=== PATIENT | male | born 1980 | race Two or more races ===

== ENCOUNTER 2018-12-02 07:42 | Emergency (ER) | payer OTHER ==
[2018-12-02] MEDS ORDERED: PROPARACAINE 0.5% 15 ML OPHT DROP ONE (09:33)
[2018-12-02] MEDS ORDERED: FLUORESCEIN SODIUM 1 MG STRIP OP ONE (09:33)
--- NOTE | 2018-12-02 09:52 | EDPHY ---
H & P Stated Complaint: R eye vision changes Time Seen by Provider: 12/02/18 08:58 HPI/ROS: CHIEF COMPLAINT: Black spot in vision HISTORY OF PRESENT ILLNESS: This is a 38-year-old male in general good health ( he takes thyroid replacement) who presents with a dark spot in his right eye visual field. He notices this this morning and it has persisted. The spot moves with eye movement. He has not had pain. He denies eye trauma. He feels that his vision might be slightly blurry but does not really think that his vision has markedly changed. He wears corrective eyeglasses. He does have a history of a floaters but this seems larger than what he normally experiences. He states that it is as if he has a "fly in his eye". REVIEW OF SYSTEMS: A ten system review of systems was performed and is negative with the exception of the items mentioned in the HPI. Past medical history: Hypothyroid, hyperlipidemia Past surgical history: Noncontributory. No eye surgery. Social history: He is a professor at the [employer]. He is . He does not use tobacco products. General Appearance: Alert. Vital signs reviewed. Eyes: Visual Acuity: noted from Nurse's notes. Right eye 20/25, OS 20/20, both eyes 20/20. With correction. Visual hall full to confrontational testing. Pupils:equal round and reactive to light, EOMI Lids: no edema or swelling Skin: no proptosis, no periorbital erythema or swelling, no vesicles Conjunctivae: not injected, no discharge Cornea: exam with fluorescein shows no corneal abrasion Anterior chamber:normal, no hyphema or hypopyon; anterior vitreous does not appear granular. ENT, Mouth: Mucous membranes are moist, no oropharyngeal erythema or edema. Neck: No lymphadenopathy, supple. Respiratory: Lungs are clear to auscultation; no wheezes, rales, or rhonchi. Cardiovascular: Regular rate and rhythm; no murmur, rub, or gallop. Skin: Warm and dry, no rashes on exposed skin, normal color. Neurological: Alert and oriented. Moving all four extremities easily and equally. Facial sensation intact to light touch. Tongue midline. Facial expressions symmetric appearing Psychiatric: Normal affect. - Personal History Current Tetanus/Diphtheria Vaccine: No Current Tetanus Diphtheria and Acellular Pertussis (TDAP): No - Medical/Surgical History Hx Asthma: No Hx Chronic Respiratory Disease: No Hx Diabetes: No Hx Cardiac Disease: No Hx Renal Disease: No Hx Cirrhosis: No Hx Alcoholism: No Hx HIV/AIDS: No Hx Splenectomy or Spleen Trauma: No Other PMH: thyroid - Social History Smoking Status: Never smoked Constitutional: Initial Vital Signs Temperature (C) 36.8 C 12/02/18 07:46 Heart Rate 65 12/02/18 07:46 Respiratory Rate 16 12/02/18 07:46 Blood Pressure 123/84 H 12/02/18 07:46 O2 Sat (%) 96 12/02/18 07:46 O2 Delivery Mode Nasal Cannula Allergies/Adverse Reactions: No Known Allergies Allergy (Verified 11/24/14 08:18) Home Medications: Medication Instructions Recorded CHOLECALCIFEROL [VITAMIN D] 3,000 iunits DAILY 12/11/12 LEVOTHYROXINE SODIUM [Tirosint 75 75 mcg PO DAILY 12/11/12 mcg] Atorvastatin Calcium 12/02/18 Medical Decision Making ED Course/Re-evaluation: Large floater right eye in year old male. Physical exam, including a slight limp exam, normal. Concern for retinal detachment remains. Other possibility include floaters, central retinal artery or vein occlusion, vitreous hemorrhage. I have spoken with Dr. Brunson, this patient's editor publications, and he will see the patient in his office. The patient is discharged from the emergency department and will go directly to Dr. Brunson's office. Departure - Departure Disposition: Home, Routine, Self-Care Clinical Impression: Visual changes Condition: Good Instructions: Visual Floaters (ED) Additional Instructions: Go directly to Dr. Smith's office at [id number]. Referrals: Juliana Salmeron MD [Primary Care Provider] - As per Instructions Abelardo Brunson MD [Medical Doctor] - As per Instructions
[2018-12-02 10:00] VITALS: BP 129/82
== END 2018-12-02 09:58 | disposition home or self-care (01) ==
DX: H53.451 Other localized visual field defect, right eye (principal); E03.9 Hypothyroidism, unspecified; Z79.899 Other long term (current) drug therapy